=== PATIENT | female | born 1975 | race Caucasian/White ===

== ENCOUNTER 2019-07-04 06:23 | Day surgery (SDC) | payer SELFPAY ==
[2019-07-02 16:05] VITALS: BMI 29.8
[~2019-07-04 06:23] MED LIST: LIDOCAINE HCL 1%, 10 MG/ML (20ML VIAL) NR ONE
[2019-07-04] MEDS ORDERED: CLINDAMYCIN PHOSPHATE 300 MG/2 ML VIAL ONE (06:27)
[2019-07-04] MEDS ORDERED: CLINDAMYCIN PHOSPHATE 600 MG/4 ML VIAL ONE (06:27)
[2019-07-04] MEDS ORDERED: HEPARIN NA (PORCINE) 5,000 UNITS/ML 1ML VIAL ONE (06:30)
[2019-07-04] MEDS ORDERED: EPINEPHrine/PF 1 MG/1 ML (1:1,000) AMPULE ONE ×3 (07:33→11:28)
[2019-07-04] MEDS ORDERED: LIDOCAINE HCL 1%, 10 MG/ML (20ML VIAL) ONE (07:33)
[2019-07-04] MEDS ORDERED: ROCURONIUM BROMIDE 50 MG/5 ML SYRINGE ONE (07:57)
[2019-07-04] MEDS ORDERED: DEXAMETHASONE SOD PHOSPHATE 4 MG/1 ML VIAL ONE (07:57)
[2019-07-04] MEDS ORDERED: PROPOFOL 20 ML ONE (07:57)
[2019-07-04] MEDS ORDERED: MIDAZOLAM HCL 2 MG/2 ML SINGLE DOSE VIAL ONE (07:57)
[2019-07-04] MEDS ORDERED: SUCCINYLCHOLINE CHLORIDE 200 MG/10 ML SYRINGE ONE (07:57)
[2019-07-04] MEDS ORDERED: fentaNYL CITRATE 250 MCG/5 ML VIAL ONE (07:57)
[2019-07-04] MEDS ORDERED: LIDOCAINE HCL/PF 2% SDV 5ML VIAL ONE (07:57)
[2019-07-04] MEDS ORDERED: HEPARIN NA (PORCINE) 5,000 UNITS/ML 1ML VIAL SQ ONE (08:01)
[2019-07-04] MEDS ORDERED: BUPIVACAINE HCL/PF 0.25% (2.5MG/ML) 10 ML VIAL ONE ×2 (08:09→08:30)
[2019-07-04] MEDS ORDERED: BUPIVACAINE LIPOSOME/PF (EXPAREL) 266 MG/20 ML VIAL ONE (08:30)
[2019-07-04] MEDS ORDERED: CLINDAMYCIN 900 MG PREMIX BAG IVPB ONE (08:40)
[2019-07-04] MEDS ORDERED: VECURONIUM BROMIDE 10 MG VIAL ONE ×2 (09:14→12:13)
[2019-07-04] MEDS ORDERED: SODIUM CHLORIDE 0.9% P/F 10 ML VIAL IJ ONE (09:14)
[2019-07-04] MEDS ORDERED: ADENOSINE 6 MG/2 ML VIAL IVPUSH ONE (09:54)
[2019-07-04] MEDS ORDERED: HYDROmorphone HCl 2 MG/ML VIAL ONE (09:55)
[2019-07-04] MEDS ORDERED: BUPIVACAINE HCL/PF 0.25% (2.5MG/ML) 10 ML VIAL IJ ONE (10:45)
[2019-07-04] MEDS ORDERED: BUPIVACAINE LIPOSOME/PF (EXPAREL) 266 MG/20 ML VIAL NR ONE (10:45)
[2019-07-04] MEDS ORDERED: BACITRACIN 15 GM TUBE TOPICAL OINTMENT ONE (11:57)
[2019-07-04] MEDS ORDERED: NEOSTIGMINE METHYLSULFATE 0.5 MG/ML - 10 ML MDV ONE (12:58)
[2019-07-04] MEDS ORDERED: GLYCOPYRROLATE 0.2 MG/1 ML VIAL ONE (12:58)
[2019-07-04] MEDS ORDERED: NITROGLYCERIN 2% OINTMENT - 1GM PACKET TD ONE (13:02)
[2019-07-04] MEDS ORDERED: oxyCODONE HCL 5 MG TABLET PO PRN ×2 (13:31)
[2019-07-04] MEDS ORDERED: ONDANSETRON 4 MG/2 ML VIAL IVPB PRN (13:31)
--- NOTE | 2019-07-04 13:37 | OP ---
Operative Note - Note: Operative Date: 07/04/19 Pre-Operative Diagnosis: abdominal deformity Operation: abdominoplasty with liposuction Post-Operative Diagnosis: Same as Pre-op Surgeon: Danilo Luna Anesthesia: General Operative Report Dictated: Yes
[2019-07-04] MEDS ORDERED: LACTATED RINGERS SOLUTION 1,000 ML IV SCH (13:45)
[2019-07-04] MEDS ORDERED: SCOPOLAMINE HYDROBROMIDE 1 PATCH PATCH.TD72 TD SCH (14:00)
--- NOTE | 2019-07-04 16:26 | OP ---
DATE OF OPERATION: 07/04/2019 PROCEDURE: Abdominoplasty with abdominal and flank liposuction. PREOPERATIVE DIAGNOSIS: Abdominal deformity. POSTOPERATIVE DIAGNOSIS: Abdominal deformity. ATTENDING SURGEON: Danilo Luna MD [employer]SFER [employer] ATTENDANT: No assistants. ANESTHESIA: General endotracheal anesthesia. The patient was seen in the holding area. Risks, benefits, alternatives, and limitations to the operation are discussed. She is marked in a standing position, awake and aware of all incisions and resulting scars. The patient is given 5000 units of subcutaneous heparin preoperatively. She is given QUETA hose and sequential compression stockings. She is brought to the operating room, placed in supine position. Positioning is carefully checked by surgical and anesthesia teams. The patient is then given anesthesia. She is given 900 mg of clindamycin, after which a pillow is placed below the knees. Pressure points are all carefully padded. A Mukherjee catheter is placed and removed at the end of the procedure. The patient is then prepped and draped in standard surgical fashion. A timeout is called. The patient, procedure, side and sites are verified. At this point, an incision is made along the inferior border of the excision pattern, dissection carried down to the level of the abdominal wall fascia. At this point, dissection is then carried along the abdominal wall fascia to the level of the umbilicus. The umbilicus is then circumferentially incised and developed in a fibrofatty stalk to the abdominal wall fascia. Cephalad to the umbilicus, dissection is continued in a narrow tunnel, just exposing the diastasis recti. All lateral perforating blood vessels are left intact. The midline plication is then performed, first with a series of interrupted buried [id number] number 1 Prolene sutures, both above and below the umbilicus. A second layer of running locking number 1 Prolene suture with all knots buried is then performed both above and below the umbilicus. Adequate space is given to the umbilicus for translocation. Several additional protective 0 Prolene sutures are then placed to prevent suture breaking along this midline plication. Given the excessive thickness of the upper abdominal tissue, and the fact that this was not all underlined except in the immediate midline, the decision was made for liposuction of the upper flap. The lower flap is marked and direct scissors trimming of some of the sub-Sharad fat is performed. The patient is brought to a 30-degree upright position, where excess skin and fat are transposed and are excised, where tension-free closure could be performed. Size 19 round ALEX drains are brought out through lateral points in the incision. The abdominal fascia is then injected with a mixture of 20 mL of Exparel mixed with 40 mL of 0.25% Marcaine plain. Wetting solution is infiltrated into the abdominoplasty flap at the midepigastrium as well as bilateral flanks. The total infiltration is 2 L. A full 30 minutes is awaited prior to any liposuction. While this is being done, the umbilicus is then translocated through a Star Trek pattern incision in the abdominoplasty flap. It is secured with a series of interrupted 3-0 buried deep dermal 3-0 Monocryl suture, followed by a combination of running and interrupted 5-0 nylon suture. The abdominal closure is performed with a series of interrupted buried Sharad layer 2-0 Vicryl suture, followed by a series of interrupted buried deep dermal 3-0 Monocryl suture. Liposuction is then performed in the SAFE technique with pre and post tunneling without suction. The liposuction is then performed with a combination of 3 and 4 mm cannulas. The lipoaspirates are 700 mL from the abdomen and 400 mL from each flank, end point to smooth even contour. The closure is then finalized with a running V-Loc suture, 3-0 90-day. Several 5-0 nylon sutures are used to perfect the closure. The drains were placed to bulb suction. Drains are secured with 2-0 silk drain suture and a dressing is applied with paste to the suprapubic skin, bacitracin and Xeroform for the remainder of the incision, ABD gauze, and abdominal binder. Patient awoke from anesthesia, having tolerated the procedure well, transferred to recovery without complication. Jaja [id number]
[2019-07-04 19:58] VITALS: BP 121/70; PULSE 98; TEMP 98.5
== END 2019-07-04 20:00 | disposition home or self-care (01) ==
LOC: JASU-SURG 06:23
PROVIDERS: ATTEND Plastic Surgery
PROC: 0J083ZZ Alteration of Abdomen Subcutaneous Tissue and Fascia, Percutaneous Approach (ICD-10-PCS; 2019-07-04)
PROC: 0J080ZZ Alteration of Abdomen Subcutaneous Tissue and Fascia, Open Approach (ICD-10-PCS; principal; 2019-07-04 08:00)
DX: Z41.1 Encounter for cosmetic surgery (principal)
CPT/HCPCS: 84703; 94760; J1644